=== PATIENT | male | born 1965 | race Caucasian/White ===

== ENCOUNTER 2017-09-25 08:57 | Day surgery (SDC) | payer OTHER ==
[~2017-09-25 08:57] MED LIST: BACITRACIN 50,000 UNITS/10 ML SYR IRR ONE; BUPIVACAINE 0.5% 30 ML SDV ONE; POLYMYXIN B SULFATE 500,000 UNIT/10 ML SYR IRR ONE; ceFAZolin 2 GM/SWFI 2 GM/20 ML SYR IVP ONE
[2017-09-25] MEDS ORDERED: ceFAZolin 2 GM/SWFI 2 GM/20 ML SYR IVP ONE (09:39)
--- NOTE | 2017-09-25 09:40 | PDHPUP ---
History & Physical Update H&P update statement: This history and physical update is based on an assessment of the patient which was completed after admission or registration (within 24 hours), but prior to the surgery/procedure. H&P update: H&P reviewed & patient examined, no change in patient's condition since H&P completed
[2017-09-25] MEDS ORDERED: LIDOCAINE 1% 2 ML INJ ID PRN (09:44)
[2017-09-25] MEDS ORDERED: LR 1,000 ML IV ONE (09:44)
[2017-09-25] MEDS ORDERED: LIDOCAINE 1% 2 ML INJ ONE (09:50)
[2017-09-25] MEDS ORDERED: MIDAZOLAM 2 MG/2 ML VIAL ONE (10:04)
[2017-09-25] MEDS ORDERED: MIDAZOLAM 2 MG/2 ML VIAL IVP ONE (10:05)
--- NOTE | 2017-09-25 10:05 | PDANEPAE ---
ANE Past Medical History - Cardiovascular History Hx Hypertension: No Hx Arrhythmias: No Hx Chest Pain: No Hx Coronary Artery / Peripheral Vascular Disease: No Hx CHF / Valvular Disease: No Hx Palpitations: No Cardiovascular History Comment: RBBB - Pulmonary History Hx COPD: No Hx Asthma/Reactive Airway Disease: No Hx Recent Upper Respiratory Infection: No Hx Oxygen in Use at Home: No Hx Sleep Apnea: No Sleep Apnea Screening Result - Last Documented: Negative - Neurologic History Hx Cerebrovascular Accident: No Hx Seizures: No Hx Dementia: No - Endocrine History Hx Diabetes: Yes Obesity: severe Endocrine History Comment: IDDM - Renal History Hx Renal Disorders: No - Liver History Hx Hepatic Disorders: No - Neurological & Psychiatric Hx Hx Neurological and Psychiatric Disorders: No - Cancer History Hx Cancer: No - Congenital Disorder History Hx Congenital Disorders: No - GI History Hx Gastrointestinal Disorders: No - Other Health History Other Health History: INTERMITTENT RT BICEPS STRESS RASH - Chronic Pain History Chronic Pain: Yes (RT SHLDR) - Surgical History Prior Surgeries: LT SHLDR RTC 11/2016 AT. Left knee replaced. Tonsilectomy. Vasectomy. Umbilical hernia. Right heel bone spur ANE Review of Systems Review of Systems: - Exercise capacity METS (RN): 4 METS ANE Patient History - Allergies Allergies/Adverse Reactions: exenatide microspheres [From Bydureon] Allergy (Verified 09/20/16 16:09) sulfamethoxazole [From Bactrim] Allergy (Verified 08/22/17 15:33) testosterone [From Testim] Allergy (Verified 08/22/17 15:33) Rash trimethoprim [From Bactrim] Allergy (Verified 08/22/17 15:33) FEVER,DECREASED BP - Home Medications Home Medications: GABAPENTIN 900 mg PO DAILY AT 6PM 09/20/16 [Last Taken Unknown] Lisinopril 10 mg PO DAILY AT 6PM 09/20/16 [Last Taken Unknown] Metformin HCl [Metformin 1000 mg] DAILY AT 6PM 09/20/16 [Last Taken Unknown] Nesina 25 DAILY AT 6PM 09/20/16 [Last Taken Unknown] Advil Pm Caplet HS 08/22/17 [Last Taken Unknown] Allergy Medication DAILY AT 8PM 08/22/17 [Last Taken Unknown] Aspirin DAILY AT 6PM 08/22/17 [Last Taken Unknown] Basaglar DAILY AT 8PM 08/22/17 [Last Taken Unknown] Herbal Drugs 08/22/17 [Last Taken Unknown] traMADol PRN 08/22/17 [Last Taken Unknown] - NPO status NPO Since - Liquids (Date): 09/24/17 NPO Since - Liquids (Time): 23:00 NPO Since - Solids (Date): 09/24/17 NPO Since - Solids (Time): 22:30 - Smoking Hx Smoking Status: Never smoked - Family Anes Hx Family Hx Anesthesia Complications: None ANE Labs/Vital Signs - Vital Signs Blood Pressure: 140/81 Heart Rate: 82 Respiratory Rate: 14 O2 Sat (%): 94 Height: 185.42 cm Weight: 120.202 kg ANE Physical Exam - Airway Neck exam: FROM Mallampati Score: Class 1 Mouth exam: normal dental/mouth exam - Pulmonary Pulmonary: no respiratory distress - Cardiovascular Cardiovascular: regular rate and rhythym - ASA Status ASA Status: III ANE Anesthesia Plan Anesthesia Plan: general endotracheal anesthesia
[2017-09-25] MEDS ORDERED: PROPOFOL/EMULSION 500 MG/50 ML BOTTLE IV ONE (10:23)
[2017-09-25] MEDS ORDERED: fentaNYL 250 MCG/5 ML INJ ONE (10:24)
[2017-09-25] MEDS ORDERED: LIDOCAINE 2% 5 ML SDV ONE (10:27)
[2017-09-25] MEDS ORDERED: METOPROLOL TARTRATE 5 MG/5 ML INJ ONE (12:40)
[2017-09-25] MEDS ORDERED: DEXAMETHASONE 4 MG/ML VIAL ONE (12:40)
[2017-09-25] MEDS ORDERED: ONDANSETRON 4 MG/2 ML VIAL ONE (12:40)
[2017-09-25] MEDS ORDERED: fentaNYL 100 MCG/2 ML INJ ONE ×2 (12:51→13:40)
[2017-09-25] MEDS ORDERED: MEPERIDINE 25 MG/ML SYR IVP PRN (12:52)
[2017-09-25] MEDS ORDERED: NALOXONE HCL 0.4 MG/ML INJ IVP PRN (12:52)
[2017-09-25] MEDS ORDERED: LR 500 ML IV PRN (12:52)
[2017-09-25] MEDS ORDERED: HYDROCODONE/APAP 5/325 TAB PO PRN (12:52)
[2017-09-25] MEDS ORDERED: PROMETHAZINE HCL 25 MG/ML INJ IVP PRN (12:52)
[2017-09-25] MEDS ORDERED: KETOROLAC 30 MG/1 ML SDV ONE (12:55)
[2017-09-25] MEDS ORDERED: oxyCODONE IR 5 MG TAB PO PRN (13:36)
[2017-09-25] MEDS ORDERED: LABETALOL HCL 5 MG/ML 20 ML MDV IVP PRN (13:37)
--- NOTE | 2017-09-25 13:38 | POSTOPPROG ---
Post Op Note Date of Operation: 09/25/17 Surgeon: Kaylie Vail Lean Consultant: Charisse Patten Anesthesiologist: Dr. Ontiveros Anesthesia: GET(General Endotracheal) Pre-op Diagnosis: right shoulder pain, right carpal tunnel syndrome, painful sutures L knee Post-op Diagnosis: R shoulder pain, R carpal tunnel syndrome, painful sutures L knee Indication: continued pain Procedure: R shoulder SAD, DCE, debridment, biceps tenotomy; R CTR; L knee suture leanna Inf/Abcess present in the surg proc area at time of surgery?: No EBL: Minimal Complications: none
[2017-09-25] MEDS ORDERED: LABETALOL HCL 50 MG/10 ML SYR ONE (13:40)
--- NOTE | 2017-09-25 13:40 | POSTANESTH ---
Post Anesthetic Evaluation Cardiovascular Status: Similar to Pre-Op Cond Respiratory Status: Similar to Pre-op Cond. Level of Consciousness/Mental Status: Mildly Sleepy, Arousable Pain Control: Adequate, Prn Tx Ordered Nausea/Vomiting Control: Adequate, Prn Tx Ordered Complications Possibly Related to Anesthesia: None Noted
[2017-09-25] MEDS: fentaNYL 100 MCG/2 ML INJ IVP PRN ×2 (13:43→13:54)
--- NOTE | 2017-09-25 13:56 | SOAPPROG ---
SOAP Progress Note Assessment/Plan: Assessment/Plan: 52y/o male s/p right shoulder SAD, DCE, debridement, biceps tenotomy; right carpal tunnel release; removal of painful sutures in left knee - stable and doing well - sling x 2 weeks, ok for pendulums and straightening elbow - meds as directed - keep incisions clean and dry - call with issues or concerns 09/25/17 13:54 Subjective: Shoulder feels sore, otherwise well Objective: Vital Signs Temp Pulse Resp BP Pulse Ox 36.4 C 82 14 140/81 H 94 09/25/17 13:30 09/25/17 10:05 09/25/17 10:05 09/25/17 10:05 09/25/17 10:05 NAD, well appearing, no distress EOMi, face symmetric MAEx4 incisions clean, dressed ICD10 Worksheet Patient Problems: Problems Problem Status Onset Shoulder pain Acute - ICD10 Problem Qualifiers (1) Shoulder pain
[2017-09-25] MEDS ORDERED: oxyCODONE IR 5 MG TAB ONE (14:03)
[2017-09-25 14:39] VITALS: PULSE 69; RESP 16; TEMP 97.9
[2017-09-25 15:12] VITALS: BP 136/97; O2SAT 91
== END 2017-09-25 15:30 | disposition home or self-care (01) ==
LOC: FSGY 08:57 → EDSTATUS 10:45 → FSGY 15:30
PROVIDERS: ATTEND Orthopaedic Surgery
PROC: 0PB94ZZ Excision of Right Clavicle, Percutaneous Endoscopic Approach (ICD-10-PCS; principal; 2017-09-25 10:45)
PROC: 01N50ZZ Release Median Nerve, Open Approach (ICD-10-PCS; principal; 2017-09-25 10:45)
PROC: 0LM10ZZ Reattachment of Right Shoulder Tendon, Open Approach (ICD-10-PCS; principal; 2017-09-25 10:45)
PROC: 8E0YXY8 Suture Removal from Lower Extremity (ICD-10-PCS; principal; 2017-09-25 10:45)
PROC: 0MB14ZZ Excision of Right Shoulder Bursa and Ligament, Percutaneous Endoscopic Approach (ICD-10-PCS; principal; 2017-09-25 10:45)
DX: M75.41 Impingement syndrome of right shoulder (principal); M75.81 Other shoulder lesions, right shoulder; M75.21 Bicipital tendinitis, right shoulder; G56.01 Carpal tunnel syndrome, right upper limb; T81.89XA Other complications of procedures, not elsewhere classified, initial encounter; Z48.02 Encounter for removal of sutures; Z96.652 Presence of left artificial knee joint; I10 Essential (primary) hypertension; E11.9 Type 2 diabetes mellitus without complications; E29.1 Testicular hypofunction
CPT/HCPCS: J0171; J0690; J1100; J1885; J2250; J2405; J2704; J3010

== ENCOUNTER 2018-11-29 06:01 | Day surgery (SDC) | payer BC, OTHER ==
[2018-11-29] MEDS ORDERED: ceFAZolin 2 GM/DEXTROSE 100 ML IV ONE (06:08)
[2018-11-29] MEDS ORDERED: LR 1,000 ML IV ONE (06:12)
[2018-11-29] MEDS ORDERED: LIDOCAINE 1% 2 ML INJ ID PRN (06:12)
[2018-11-29] MEDS ORDERED: LIDOCAINE 1% 2 ML INJ ONE (06:15)
[2018-11-29] MEDS ORDERED: BUPIVACAINE 0.5% 30 ML SDV ONE (06:45)
[2018-11-29] MEDS ORDERED: MIDAZOLAM 2 MG/2 ML VIAL IVP ONE (07:04)
[2018-11-29] MEDS ORDERED: SCOPOLAMINE HYDROBROMIDE 1 MG/3 DAYS PATCH TD ONE (07:06)
--- NOTE | 2018-11-29 07:10 | PDANEPAE ---
ANE Past Medical History - Cardiovascular History Hx Hypertension: Yes Hx Arrhythmias: No Hx Chest Pain: Yes Hx Coronary Artery / Peripheral Vascular Disease: No Hx CHF / Valvular Disease: No Hx Palpitations: No Cardiovascular History Comment: Hx LBBB. Heart cath 03/2017 - Pulmonary History Hx COPD: No Hx Asthma/Reactive Airway Disease: No Hx Recent Upper Respiratory Infection: No Hx Oxygen in Use at Home: No Hx Sleep Apnea: No Sleep Apnea Screening Result - Last Documented: Positive Pulmonary History Comment: ELLEN triggers - Neurologic History Hx Cerebrovascular Accident: No Hx Seizures: No Hx Dementia: No - Endocrine History Hx Diabetes: Yes Endocrine History Comment: INSULIN DEP. DX 2012 - Renal History Hx Renal Disorders: No - Liver History Hx Hepatic Disorders: No - Neurological & Psychiatric Hx Hx Neurological and Psychiatric Disorders: No - Cancer History Hx Cancer: No - Congenital Disorder History Hx Congenital Disorders: No - GI History Hx Gastrointestinal Disorders: No - Other Health History Other Health History: wears glasses for reading. osteoarthritis - uses marijuana for pain control - Chronic Pain History Chronic Pain: Yes (kenns, shoulders) - Surgical History Prior Surgeries: left shoulder replacement and carpel tunnel 2016. right shoulder clean-up and carpel tunnel 2016. left total knee 09/27. LT KNEE SCOPE. REMVL BONE SPUR RT HEEL. UMBILICAL HERNIA. TONSILLECTOMY ANE Review of Systems Review of Systems: - Exercise capacity METS (RN): 4 METS ANE Patient History - Allergies Allergies/Adverse Reactions: dapagliflozin [From Farxiga] Allergy (Verified 11/19/18 11:07) stomach pain exenatide microspheres [From Bydureon] Allergy (Verified 11/19/18 11:07) stomach pain sulfamethoxazole [From Bactrim] Allergy (Verified 11/19/18 11:07) fever, hypotension testosterone [From Testim] Allergy (Verified 08/22/17 15:33) Rash trimethoprim [From Bactrim] Allergy (Verified 11/19/18 11:07) fever, hypotension - Home Medications Home medications: home medication list seen and reviewed Home Medications: Lisinopril [Zestril 10 mg (*)] 10 mg HS 09/10/15 [Last Taken 11/28/18] metFORMIN HCL [Glucophage 500 mg (*)] 1,000 mg HS 09/10/15 [Last Taken 11/28/18] Gabapentin [Neurontin 300 MG (*)] 900 mg HS 09/29/16 [Last Taken 11/28/18] Alogliptin Benzoate [Nesina] 10 mg HS 11/19/18 [Last Taken 11/28/18] Aspirin [Aspirin 81mg (*)] 81 mg DAILY 11/19/18 [Last Taken 11/22/18] Insulin Glargine [Lantus] 40 unit HS 11/19/18 [Last Taken 11/28/18] Lactobacillus Acidophilus [Probiotic] 1 each PO 11/19/18 [Last Taken 11/22/18] Multivitamin [One-Daily Multi-Vitamin] 1 each PO 11/19/18 [Last Taken 11/22/18] - NPO status NPO Status: no food or drink >8 hours NPO Since - Liquids (Date): 11/29/18 NPO Since - Liquids (Time): 04:15 NPO Since - Solids (Date): 11/28/18 NPO Since - Solids (Time): 20:00 - Anes Hx Anes Hx: post operative nausea and vomiting - Smoking Hx Smoking Status: Never smoked - Family Anes Hx Family Hx Anesthesia Complications: unknown, pt is adopted ANE Labs/Vital Signs - Vital Signs Blood Pressure: 129/85 Heart Rate: 79 Respiratory Rate: 15 O2 Sat (%): 95 Height: 185.42 cm Weight: 115.666 kg ANE Physical Exam - Airway Neck exam: FROM Mallampati Score: Class 3 - Pulmonary Pulmonary: no respiratory distress, no rales or rhonchi, clear to auscultation - Cardiovascular Cardiovascular: regular rate and rhythym, no murmur, rub, or gallop - ASA Status ASA Status: II ANE Anesthesia Plan Anesthesia Plan: general endotracheal anesthesia
[2018-11-29] MEDS ORDERED: SCOPOLAMINE HYDROBROMIDE 1 MG/3 DAYS PATCH TD SCH (07:15)
[2018-11-29] MEDS ORDERED: fentaNYL 100 MCG/2 ML INJ ONE ×3 (07:20→11:29)
[2018-11-29] MEDS ORDERED: PROPOFOL/EMULSION 500 MG/50 ML BOTTLE IV ONE ×2 (07:20→08:51)
[2018-11-29] MEDS ORDERED: ESMOLOL HCL 100 MG/10 ML VIAL IV ONE (07:34)
[2018-11-29] MEDS ORDERED: LIDOCAINE 2% 5 ML SDV ONE (07:36)
[2018-11-29] MEDS ORDERED: ONDANSETRON 4 MG/2 ML VIAL ONE ×2 (07:36)
[2018-11-29] MEDS ORDERED: PROPOFOL 200 MG/20 ML VIAL ONE ×4 (07:51→09:33)
[2018-11-29] MEDS ORDERED: fentaNYL 100 MCG/2 ML INJ IVP PRN (07:56)
[2018-11-29] MEDS ORDERED: ACETAMINOPHEN 500 MG TAB PO PRN (07:56)
[2018-11-29] MEDS ORDERED: ONDANSETRON 4 MG/2 ML VIAL IVP PRN (07:56)
[2018-11-29] MEDS ORDERED: PROMETHAZINE HCL 25 MG/ML INJ IVP PRN (07:56)
[2018-11-29] MEDS ORDERED: LR 500 ML IV PRN (07:56)
[2018-11-29] MEDS ORDERED: HYDROCODONE/APAP 5/325 TAB PO PRN (07:56)
[2018-11-29] MEDS ORDERED: NALOXONE HCL 0.4 MG/ML INJ IVP PRN ×2 (07:56→09:35)
[2018-11-29] MEDS ORDERED: METOCLOPRAMIDE 10 MG/2 ML VIAL IVP PRN (07:56)
--- NOTE | 2018-11-29 10:11 | POSTANESTH ---
Post Anesthetic Evaluation Cardiovascular Status: Similar to Pre-Op Cond Respiratory Status: Normal, Stable Level of Consciousness/Mental Status: Can Participate in Eval Pain Control: Adequate, Prn Tx Ordered Nausea/Vomiting Control: Adequate, Prn Tx Ordered Complications Possibly Related to Anesthesia: None Noted
[2018-11-29] MEDS: fentaNYL 100 MCG/2 ML INJ IVP PRN ×2 (10:20→10:36)
[2018-11-29] MEDS ORDERED: HYDROmorphONE/DILAUDID 2 MG/ML INJ ONE (10:21)
--- NOTE | 2018-11-29 10:21 | POSTOPPROG ---
Post Op Note Date of Operation: 11/29/18 Surgeon: Kaylie Vail Ending Machine Operator: Charisse Patten PA-C Anesthesiologist: Dr. London Anesthesia: GET(General Endotracheal) Pre-op Diagnosis: right ulnar neuritis Post-op Diagnosis: right ulnar nerve entrapment Indication: right ulnar nerve pain Procedure: right ulnar nerve decompression/transposition Inf/Abcess present in the surg proc area at time of surgery?: No EBL: Minimal Complications: none
[2018-11-29] MEDS: HYDROmorphONE/DILAUDID 2 MG/ML INJ IVP PRN ×2 (10:23→10:36)
--- NOTE | 2018-11-29 10:23 | SOAPPROG ---
SOAP Progress Note Assessment/Plan: Assessment: Assessment/Plan: 53y/o male s/p right ulnar nerve decompression/transposition - stable and doing well - sling and splint at all times x 2 weeks - dc when PACU criteria met - call with any issues 11/29/18 10:22 Subjective: Elbow pain 6/10. Minimal tingling in 5th digit Objective: Vital Signs Temp Pulse Resp BP Pulse Ox 36.5 C 79 15 129/85 H 95 11/29/18 06:26 11/29/18 07:11 11/29/18 07:11 11/29/18 07:11 11/29/18 07:11 NAD, no distress, waking from anesthesia EOMi, face symmetric wiggles all fingers easily on the right incision clean, dressed ICD10 Worksheet Patient Problems: Problems Problem Status Onset Arrhythmia Acute Localized primary osteoarthritis of left lower leg Acute Shoulder pain Acute
[2018-11-29] MEDS ORDERED: HYDROCODONE/APAP 5/325 TAB ONE (10:58)
[2018-11-29 12:39] VITALS: BP 135/80
--- NOTE | 2018-11-30 17:28 | GOP ---
DATE OF OPERATION: 11/29/2018 SURGEON: Kaylie Vail MD HEARING THERAPIST: KAMARI Matamoros. ANESTHESIA: General. PREOPERATIVE DIAGNOSIS: Cubital tunnel syndrome, right elbow. POSTOPERATIVE DIAGNOSIS: Cubital tunnel syndrome, right elbow. PROCEDURE PERFORMED: Decompression of ulnar nerve at the elbow with subcutaneous transposition of th e ulnar nerve. FINDINGS: Preoperative exam and EMG nerve conduction study demonstrated significant cubital tunnel s yndrome of the right elbow. At the time of surgery, the ulnar nerve was located in the cubital tunne l with some difficulty. 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 This was teased back and the ulnar nerve was located just posterior to the medial inter muscular septum. The nerve was then traced through its course in the cubital tunnel. There was sign ificant compression on the nerve. There was an hourglass deformity starting at the superior portion of the tunnel and extending through the area of compression in the cubital tunnel. The nerve was mob ilized and in addition to the vascular bundle that traveled with the nerve, it was transposed medial to the medial epicondyle. The nerve was completely released distally as well as it entered the forea rm. Once the nerve was transposed anterior to the medial upper condyle, some 0 Vicryl was used to ta ck the subcutaneous tissue to the medial epicondyle to hold the nerve in this position. There was no tension on the nerve proximal or distal. ESTIMATED BLOOD LOSS: Minimal. DESCRIPTION OF PROCEDURE: The patient was taken to the operating room, placed in supine position on the operating table. Following induction of adequate general inhalation anesthesia, the arm and fore arm were prepped and draped in usual sterile manner. The patient received 2 g of IV Ancef. The arm was elevated and exsanguinated and the tourniquet inflated to 250 mmHg. A curvilinear incision was m akbar posterior to the medial epicondyle. Incision was carried down through the subcutaneous fat layer to the cubital tunnel. The patient's anatomy was somewhat distorted by the extension of his triceps both distally and anteriorly. After careful dissection, the ulnar nerve was located just posterior to the medial intermuscular septum. It was carefully dissected free in its course through the cubita l tunnel. The dissection was carried distally as well. The nerve was then mobilized to the point wh ere there was no tension on it proximally or distally, and it was transposed in the subcutaneous tiss ue anteriorly. The 0 Vicryl was used to tack the subcutaneous layer to the medial epicondyle to hold the nerve in the transposed position. The subcutaneous tissue was closed using 2-0 Vicryl. The ski n was closed using 4-0 Vicryl in a running subcuticular fashion. Steri-Strips and sterile dressings were applied. The patient was placed in a posterior splint. He tolerated the procedure well. There were no complications. ESTIMATED BLOOD LOSS: Minimal. Sponge and instrument counts were correct. The patient was transported to recovery room in good cond ition. /[id number]/MODL
[2018-12-02] MEDS ORDERED: PATCH REMOVAL 1 EA PATCH TD SCH (07:05)
== END 2018-11-29 12:48 | disposition home or self-care (01) ==
LOC: FSGY 06:01
PROVIDERS: ATTEND Orthopaedic Surgery
PROC: 01N40ZZ Release Ulnar Nerve, Open Approach (ICD-10-PCS; principal; 2018-11-29 07:15)
DX: G56.21 Lesion of ulnar nerve, right upper limb (principal)
CPT/HCPCS: J0690; J1170; J2250; J2405; J2704; J3010